=== PATIENT | female | born 1980 | race Caucasian/White ===

== ENCOUNTER 2016-11-24 05:59 | Observation (INO) | payer OTHER ==
[2016-11-24] MEDS ORDERED: LIDOCAINE 1% 2 ML INJ ID PRN (06:12)
[2016-11-24] MEDS ORDERED: LR 1,000 ML IV ONE (06:12)
[2016-11-24] MEDS ORDERED: BUPIVACAINE 0.25% 30 ML SDV ONE (06:40)
[2016-11-24] MEDS ORDERED: MIDAZOLAM 2 MG/2 ML VIAL IVP ONE (06:56)
--- NOTE | 2016-11-24 06:56 | PDANEPAE ---
ANE History of Present Illness Diagnostic Laparoscopy, L lower quadrant abdominal mass ANE Past Medical History - Cardiovascular History Hx Hypertension: No Hx Arrhythmias: No Hx Chest Pain: No Hx Coronary Artery / Peripheral Vascular Disease: No Hx CHF / Valvular Disease: No Hx Palpitations: No - Pulmonary History Hx COPD: No Hx Asthma/Reactive Airway Disease: No Hx Recent Upper Respiratory Infection: No Hx Oxygen in Use at Home: No Hx Sleep Apnea: No Sleep Apnea Screening Result - Last Documented: Negative - Neurologic History Hx Cerebrovascular Accident: No Hx Seizures: No Hx Dementia: No - Endocrine History Hx Diabetes: No - Renal History Hx Renal Disorders: No - Liver History Hx Hepatic Disorders: No - Neurological & Psychiatric Hx Hx Neurological and Psychiatric Disorders: No - Cancer History Hx Cancer: No - Congenital Disorder History Hx Congenital Disorders: No - GI History Hx Gastrointestinal Disorders: No - Other Health History Other Health History: EXCEMA. BRUISE EASILY. L ABDOMINAL MASS, L FLANK PAIN - Chronic Pain History Chronic Pain: No - Surgical History Prior Surgeries: R ANKLE 2009. L ACL 2006 ANE Review of Systems Review of systems is: negative Review of Systems: - Exercise capacity Exercise capacity: >=4 METS METS (RN): 4 METS ANE Patient History - Allergies Allergies/Adverse Reactions: No Known Allergies Allergy (Verified 04/24/15 11:35) - Home Medications Home medications: home medication list seen and reviewed - NPO status NPO Status: no food or drink >8 hours - Anes Hx Anes Hx: no prior problems - Smoking Hx Smoking Status: Never smoked - Family Anes Hx Family Anes Hx: none Family Hx Anesthesia Complications: NONE ANE Labs/Vital Signs - Vital Signs Height: 157.48 cm Weight: 86.183 kg ANE Physical Exam - Airway Neck exam: FROM Mallampati Score: Class 3 Mouth exam: normal dental/mouth exam - Pulmonary Pulmonary: no respiratory distress - Cardiovascular Cardiovascular: regular rate and rhythym - ASA Status ASA Status: II ANE Anesthesia Plan Anesthesia Plan: general endotracheal anesthesia
[2016-11-24] MEDS ORDERED: PROPOFOL 200 MG/20 ML VIAL ONE (07:11)
[2016-11-24] MEDS ORDERED: ROCURONIUM 50 MG/5 ML VIAL ONE ×3 (07:11→10:51)
[2016-11-24] MEDS ORDERED: SUGAMMADEX SODIUM 200 MG/2 ML VIAL IVP ONE ×2 (07:11→11:39)
[2016-11-24] MEDS ORDERED: DEXAMETHASONE 4 MG/ML VIAL ONE (07:11)
[2016-11-24] MEDS ORDERED: ONDANSETRON 4 MG/2 ML VIAL ONE ×2 (07:11→12:43)
[2016-11-24] MEDS ORDERED: LIDOCAINE 2% 100 MG/5 ML SYR ONE (07:11)
[2016-11-24] MEDS ORDERED: fentaNYL 100 MCG/2 ML INJ ONE ×3 (07:16→13:20)
--- NOTE | 2016-11-24 07:20 | PDGENHP ---
History & Physical Chief Complaint: Abdominal mass History of Present Illness: 1+ year h/o abdominal mass. Slowly enlarging over time. Denies pain, bloating, nausea. Pertinent Past, Social, Family History: PMHx: as above. PSHx: ACL repair. Meds : none. NDKA Relevant Physical Exam: Abd soft, fullness L abdomen. NTTP. Cardiorespiratory Assessment: RRR. CTA B. A/P: L abd mass. Risks/benefits reviewed with patient and family. Risks of not operating reviewed. Questions answered. Plan lap removal, poss. open.
[2016-11-24] MEDS ORDERED: HYDROmorphONE/DILAUDID 2 MG/ML INJ ONE (07:58)
[2016-11-24] MEDS ORDERED: ACETAMINOPHEN 500 MG TAB PO PRN (08:28)
[2016-11-24] MEDS ORDERED: DEXAMETHASONE 4 MG/ML VIAL IVP PRN (08:28)
[2016-11-24] MEDS ORDERED: MEPERIDINE 25 MG/ML SYR IVP PRN (08:28)
[2016-11-24] MEDS ORDERED: ONDANSETRON 4 MG/2 ML VIAL IVP PRN ×2 (08:28→12:29)
[2016-11-24] MEDS ORDERED: NALOXONE HCL 0.4 MG/ML INJ IVP PRN (08:28)
[2016-11-24] MEDS ORDERED: PROMETHAZINE HCL 25 MG/ML INJ IVP PRN (08:28)
[2016-11-24] MEDS ORDERED: OXYCODONE/APAP 5/325 TAB PO PRN (08:28)
[2016-11-24] MEDS ORDERED: HYDROCODONE/APAP 5/325 TAB PO PRN (08:28)
--- NOTE | 2016-11-24 08:28 | POSTANESTH ---
Post Anesthetic Evaluation Cardiovascular Status: Normal, Stable, Similar to Pre-Op Cond Respiratory Status: Normal, Stable, Similar to Pre-op Cond. Level of Consciousness/Mental Status: Can Participate in Eval, Mildly Sleepy, Arousable Pain Control: Adequate, Prn Tx Ordered Nausea/Vomiting Control: Adequate, Prn Tx Ordered Complications Possibly Related to Anesthesia: None Noted
[2016-11-24] MEDS ORDERED: cefOXitin SODIUM 2 GM in D5W 100 ML IV ONE (11:45)
--- NOTE | 2016-11-24 12:23 | POSTANESTH ---
Post Anesthetic Evaluation Cardiovascular Status: Normal, Stable Respiratory Status: Normal, Stable Level of Consciousness/Mental Status: Can Participate in Eval Pain Control: Adequate, Prn Tx Ordered Nausea/Vomiting Control: Adequate, Prn Tx Ordered Complications Possibly Related to Anesthesia: None Noted
[2016-11-24] MEDS: fentaNYL 100 MCG/2 ML INJ IVP PRN ×3 (12:34→13:27)
--- NOTE | 2016-11-24 12:35 | POSTOPPROG ---
Post Op Note Date of Operation: 11/24/16 Surgeon: Daniel Weston Experimental [employer] Developer: Dr. Crawford Anesthesiologist: Dr. Sauer Anesthesia: GET(General Endotracheal) Pre-op Diagnosis: Abdominal mass Post-op Diagnosis: same Procedure: Lap assisted removal Inf/Abcess present in the surg proc area at time of surgery?: No EBL: 50-100
[2016-11-24] MEDS ORDERED: HYDROmorphONE/DILAUDID 1 MG/ML INJ ONE ×2 (12:42→13:21)
[2016-11-24] MEDS: HYDROmorphONE/DILAUDID 1 MG/ML INJ IVP PRN ×7 (12:46→20:43)
[2016-11-24] MEDS ORDERED: LR 1,000 ML IV SCH (13:00)
--- NOTE | 2016-11-24 14:32 | GOP ---
[f rep st] OPERATIVE REPORT DATE OF OPERATION: 11/24/2016 SURGEON: Eduard Weston MD STRIPPER PRELIMINARY: Dr. Crawford, whose presence was requested by me and medically necessary for the safe and timely completion of this case. ANESTHESIA: General endotracheal anesthesia. ANESTHESIOLOGIST: Dr. Sauer. PREOPERATIVE DIAGNOSIS: Left abdominal mass. POSTOPERATIVE DIAGNOSIS: Left abdominal mass. PROCEDURE PERFORMED: Laparoscopic-assisted excision of left abdominal mass. FINDINGS: Patient had a large cystic left-sided retroperitoneal mass. No distinct attachments were identified. ESTIMATED BLOOD LOSS: 150 cc. INDICATIONS: 36-year-old female with a history of abdominal mass. CT scan demonstrated a potentially retroperitoneal mass with possible association with the left kidney. Risks and benefits of the procedure were discussed with the patient and her family, their questions were answered and they wished to proceed. DESCRIPTION OF PROCEDURE: Patient was in a supine position. After induction of adequate general endotracheal anesthesia, the patient prepped and draped in a standard surgical fashion. 0.5% Marcaine was injected throughout the infraumbilical area and a 5 mm incision was made. The abdominal wall was elevated and the Veress needle was inserted. After noting proper pressures, the abdomen was insufflated with carbon dioxide. Three more ports were placed, two 5 mm ports and one 12 mm port in the right lower quadrant. These were all placed under direct vision after injecting 0.5% Marcaine for local anesthesia. Mass was easily identified, pushing the descending colon medially. The plane between the colon mass was carefully identified and dissected using Harmonic Scalpel and blunt dissection. The descending colon was then carefully rotated off the mass in this fashion. The inferior portion of the mass appeared to become adjacent to the ureter and gonadal vessels. This was carefully dissected without damage to these vessels. Dissection was then continued posteriorly, elevating the mass off the retroperitoneum. The plane here was loose and areolar. Dissection was then continued over into the superior aspect of the mass. It was approximately 5 cm inferior to the spleen itself. Mobilization was then continued medially and superiorly. No significant adhesions or lesions were identified here. The mass was completely elevated off the retroperitoneum, and due to the cystic nature on ultrasound, decision was made to attempt a laparoscopic extraction. The 12 mm incision was enlarged and a 15 mm extraction bag was placed. The mass itself nearly fit into this container. Therefore, it was drawn up and the 15 mm incision of the left lower quadrant was enlarged using cautery. The edges of the bag were then brought up past the wound. At this point, an incision was made in the mass itself. Suction was applied and what appeared to be old blood was extruded. Once it been deflated to an appropriate size, it was delivered through the wound, contained within the bag. It was then sent for permanent section. The incision was then closed around the 12 mm trocar using towel clamps. At this point, the abdomen was inspected and thoroughly irrigated and aspirated. Good hemostasis was noted, including 1 small vessel that had been clipped for hemostasis. The abdomen was thoroughly irrigated and aspirated with normal saline. The effluent returned clear and the abdomen was again inspected. The bed of the mass appeared to be hemostatic. No other lesions were identified after careful inspection of the abdomen. The fascia at the enlarged 15 mm port was closed using 0 Vicryl in an interrupted fashion. This was assessed using the laparoscope and found to be well closed. The remaining trocars were withdrawn under direct vision. Pneumoperitoneum was allowed to escape. The wounds were all irrigated thoroughly. Subcutaneous tissue was approximated with 3-0 Vicryl in an interrupted fashion. The skin at all sites was closed with 4-0 Monocryl in a subcuticular stitch. Wounds were sterilely dressed and the patient was extubated and then taken to PACU in stable condition. COMPLICATIONS: None. DRAINS: None. Copy requested to: Dr. Ty Shaw #: [id number]
[2016-11-24] MEDS: OXYCODONE/APAP 5/325 TAB PO PRN (22:49)
[2016-11-25] MEDS: HYDROmorphONE/DILAUDID 1 MG/ML INJ IVP PRN ×2 (04:10→10:18)
[2016-11-25] MEDS: OXYCODONE/APAP 5/325 TAB PO PRN ×3 (04:52→19:58)
[2016-11-25 05:49] LABS: HEMOGLOBIN 13.3 g/dL (12.6-16.3)
[2016-11-25 06:08] LABS: ANION GAP 9 mEq/L (8-16); CALCIUM 8.7 mg/dL (8.5-10.4); CARBON DIOXIDE 21 mEq/l (22-31); CHLORIDE 107 mEq/L (97-110); CREATININE 0.7 mg/dL (0.6-1.0); GLOMERULAR FILTRATION RATE > 60; GLUCOSE 117 mg/dL (70-100); POTASSIUM 4.2 mEq/L (3.5-5.2); SODIUM 137 mEq/L (134-144)
--- NOTE | 2016-11-25 07:38 | SOAPPROG ---
SOAP Progress Note Assessment/Plan: Assessment: s/p lap excision of abdominal mass, improving. Ambulate, advance diet. Plan: 11/25/16 07:36 Subjective: Patient c/o incisional pain, improved with meds. Sheron po, no N/V. Objective: Vital Signs Temp Pulse Resp BP Pulse Ox 36.9 C 99 18 113/77 90 L 11/25/16 07:26 11/25/16 07:26 11/25/16 07:26 11/25/16 07:26 11/25/16 07:26 Laboratory Results 11/25/16 05:40 11/25/16 05:40 11/24/16 11/25/16 11/26/16 05:59 05:59 05:59 Intake Total 3820 Output Total 1075 300 Balance 2745 -300 Alert, NAD RRR Abd soft, inc TTP Inc with some ecchymosis, no erythema. ICD10 Worksheet Patient Problems: Problems Problem Status Onset Abdominal mass Acute - ICD10 Problem Qualifiers (1) Abdominal mass
[2016-11-25] MEDS: KETOROLAC 15 MG/1 ML SDV IVP SCH ×2 (08:19→17:42)
--- NOTE | 2016-11-25 10:42 | ASMTCMCOM ---
CM Note CM Note Notes: Pt here for removal of abdominal mass, PT to eval but anticipate will dc home independent when medically stable, DILLON w/f. Date Signed: 11/25/2016 10:41 AM Electronically Signed By:Krissy Fitch RN
[2016-11-25] MEDS: IBUPROFEN 600 MG TAB PO PRN (18:35)
[2016-11-26] MEDS: OXYCODONE/APAP 5/325 TAB PO PRN ×2 (06:02→12:23)
[2016-11-26] MEDS: IBUPROFEN 600 MG TAB PO PRN (10:15)
--- NOTE | 2016-11-26 11:24 | SOAPPROG ---
SOAP Progress Note Assessment/Plan: Assessment: s/p lap excision of abdominal mass, improving. Plan d/c home. Plan: 11/25/16 07:36 11/26/16 11:23 Subjective: Patient feels better, jim po, pain controlled. Ambulating, voiding. Objective: Vital Signs Temp Pulse Resp BP Pulse Ox 37.1 C 105 H 12 103/80 94 11/26/16 07:41 11/26/16 07:41 11/26/16 07:41 11/26/16 07:41 11/26/16 08:41 Laboratory Results 11/25/16 05:40 11/25/16 05:40 11/25/16 11/26/16 11/27/16 05:59 05:59 05:59 Intake Total 3820 800 Output Total 1075 600 400 Balance 2745 200 -400 Alert, NAD RRR Abd soft, inc TTP Inc with ecchymosis, no erythema. ICD10 Worksheet Patient Problems: Problems Problem Status Onset Abdominal mass Acute - ICD10 Problem Qualifiers (1) Abdominal mass
[2016-11-26 11:25] VITALS: BP 116/71; PULSE 114; RESP 18; TEMP 99.5; O2SAT 92
== END 2016-11-26 17:03 | disposition home or self-care (01) ==
LOC: FSGY 05:59 → F3E 12:29
PROVIDERS: ADMIT Surgery; ATTEND Surgery
PROC: 0WBH4ZX Excision of Retroperitoneum, Percutaneous Endoscopic Approach, Diagnostic (ICD-10-PCS; principal; 2016-11-24 07:15)
DX: C48.0 Malignant neoplasm of retroperitoneum (principal); R19.09 Other intra-abdominal and pelvic swelling, mass and lump
CPT/HCPCS: 49329; 97116; 97161; G0378; J0694; J1100; J1170; J1885; J2001; J2250; J2405; J2704; J3010